=== PATIENT | female | born 1985 | race Caucasian/White ===

== ENCOUNTER 2020-04-03 15:00 | Outpatient (REF) | payer BC, SELFPAY ==
[2020-04-03 13:32] LABS: Abs Immature Grans 0.01 10^3/uL (0.0-0.06); Absolute Basophil Count 0.05 10^3/uL (0.0-0.2); Absolute Eosinophil Count 0.12 10^3/uL (0.0-0.7); Absolute Lymphocyte Count 1.32 10^3/uL (1.2-3.4); Absolute Monocyte Count 0.32 10^3/uL (0.1-0.8); Absolute Neutrophil Count 4.59 10^3/uL (1.2-6.7); Basophils % 0.8; Eosinophils % 1.9; HCT 39.2 % (36.0-46.0); HGB 12.9 g/dL (11.2-15.7); Immature Grans % 0.2; Lymphocytes % 20.6; MCH 29.1 pg (27.0-33.0); MCHC 32.9 % (32.0-36.0); MCV 88.5 fL (80-95); MPV 9.9 fL (8.0-11.0); Neutrophils % 71.5; Nucleated RBC 0 %; Platelet Count 301 10^3/uL (130-400); RBC 4.43 10^6/uL (3.93-5.22); RDW 12.3 % (11.7-14.6); RDW-SD 39.8 fL; WBC 6.41 10^3/uL (4.4-10.8)
[2020-04-03 13:44] LABS: ALT 17 U/L (14-59); AST 15 U/L (15-37); Albumin 4.6 g/dL (3.4-5.0); Alkaline Phosphatase 46 U/L (46-116); Anion Gap 8.8 mmol/L (3-11); BUN 15 mg/dL (7-18); Bilirubin, Total 0.5 mg/dL (0.2-1.0); CO2 29.2 mmol/L (21.0-32.0); CREATININE 0.86 mg/dL (0.55-1.02); Calcium 9.1 mg/dL (8.5-10.1); Calculated LDL 140 mg/dL (<100); Chloride 101 mmol/L (98-107); Cholesterol 224 mg/dL (<200); Glucose 82 mg/dL (74-106); HDL Cholesterol 77 mg/dL (40-60); Potassium 3.8 mmol/L (3.5-5.1); Sodium 139 mmol/L (136-145); TSH (W/Ref FT4) 1.54 uIU/mL (0.36-3.74); Total Protein 7.5 g/dL (6.4-8.2); Triglyceride 38 mg/dL (<150)
== END 2020-04-03 15:20 ==
LOC: NCHCN 15:00
PROVIDERS: PCP Internal Medicine; Visit Provider Nurse Practitioner Family
DX: M35.00 Sjogren syndrome, unspecified (principal); M79.629 Pain in unspecified upper arm
CPT/HCPCS: 80053; 80061; 84443; 85025

== ENCOUNTER 2021-07-17 19:35 | Outpatient (REF) | payer BC, SELFPAY ==
[2021-07-17 17:04] LABS: Source Nasal/Nares
[2021-07-17 17:58] LABS: COVID-19 PCR Negative (Negative)
== END 2021-07-17 19:36 | disposition home or self-care (01) ==
LOC: LBN 19:35
PROVIDERS: PCP Internal Medicine; Visit Provider Urology
DX: Z20.822 Contact with and (suspected) exposure to COVID-19 (principal); Z01.818 Encounter for other preprocedural examination
CPT/HCPCS: 87635

== ENCOUNTER 2021-07-21 09:05 | Day surgery (SDC) | payer BC, SELFPAY ==
[2021-07-21 09:10] VITALS: BP 121/86; PULSE 80; RESP 18; TEMP 36.2; O2SAT 100
[2021-07-21] MEDS: Lactated Ringers 1,000 ML 80 ML IV (09:39)
--- NOTE | 2021-07-21 10:14 | ANES.PREOP_ITS ---
General Info Date of Service Date Performed: 07/21/21 Height: 5 ft 10 in Weight: 84.1 kg Body Mass Index (BMI): 26.6 Surgical Procedure: Operation Date: 07/21/21 10:55 Proposed Procedure Side Surgeon p Cystoscopy/Poss. Laser/Retrograde/Ureteroscopy Right Narendra Fitzpatrick MD Meds Allergies and Home Medications Allergies Allergy/AdvReac Type Severity Reaction Status Date / Time pollen extracts Allergy Unverified 07/21/21 09:16 hydrocodone AdvReac Intermediate Nausea Unverified 07/21/21 09:16 oxycodone AdvReac Intermediate Nausea Unverified 07/21/21 09:16 Home Medication Medication Instructions Recorded bupropion HCl 300 mg 24 hr tablet, 300 mg PO DAILY 05/29/15 extended release (Wellbutrin XL) naproxen sodium 220 mg capsule 2 tab PO BID PRN #0 05/30/15 (Aleve) Tumeric 1 tab PO DAILY 11/16/17 spironolactone 50 mg tablet 200 mg PO DAILY tab 07/15/21 tamsulosin 0.4 mg capsule 0.4 mg PO DAILY 07/15/21 doxycycline hyclate 50 mg capsule 50 mg PO DAILY 07/17/21 levonorgestrel 20 mcg/24 hours (7 1 device INTRAUTERINE ONCE 07/17/21 yrs) 52 mg intrauterine device (Mirena) tolterodine 4 mg capsule,extended 4 mg PO DAILY 07/17/21 release 24 hr (Detrol LA) cetirizine 10 mg capsule (Zyrtec) 10 mg PO DAILY 07/18/21 Current Visit Medications: Current Medications Generic Name Dose Route Start Last Admin Trade Name Jasperq PRN Reason Stop Dose Admin Ringer's Solution 1,000 mls @ 80 mls/hr 07/21/21 06:00 07/21/21 09:39 IV 08/17/21 23:59 80 mls/hr INFUSION KING Administration Cefazolin Sodium/Dextrose 2 gm in 50 mls @ 100 mls/hr 07/21/21 06:00 Ancef Duplex IVPB 07/21/21 16:00 PREOP KING IV Miscellaneous Supplies 1 each 07/21/21 06:00 Iv Access IV 08/17/21 23:59 DIRECTED KING Sodium Chloride 0 ml 07/21/21 06:00 Normal Saline Flush 10 Ml Syr IV 08/17/21 23:59 PRN PRN Sodium Chloride 0 ml 07/21/21 06:00 Normal Saline 10 Ml Vial IJ 08/17/21 23:59 DIRECTED PRN Sterile Water 0 ml 07/21/21 06:00 Water,Injection,Sterile 10 Ml Vial IJ 08/17/21 23:59 DIRECTED PRN PFSH Active Problems Active Problems: Problem Status Onset Code Abscess, dental 05/29/15 K04.7 recurrent dental infections recurrent kidney infections Anxiety F41.9 Acne L70.9 Restless leg syndrome G25.81 PTSD (post-traumatic stress disorder) F43.10 Personal history of urinary calculi Z87.442 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 Personal history of urinary infection Z87.440 ADD (attention deficit disorder) F90.0 nuvaring for contraception Right distal ureteral calculus N20.1 Medical History Medical History Acne cystica ADD (attention deficit disorder) LEONARDO positive Anxiety Chronic neck pain Epigastric pain Exercise induced bronchospasm Hirsutism Kidney stones Night sweats Polycystic ovary syndrome PTSD (post-traumatic stress disorder) Restless leg syndrome Right facial pain Right hip pain Sjogrens syndrome Ulnar neuropathy Urolithiasis Surgical History Surgical History Appendectomy Hip surgery reshape femoral head History of lymph node biopsy left groin Tonsillectomy Tobacco Smoking/Tobacco Use Status: Never Alcohol Alcohol Intake: current Alcohol intake frequency: holidays/special occasions only Alcohol type: wine Substance Use Substance use: Never Vital Signs and Lab Results Vital Signs Most Recent Vital Signs in EMR: Most Recent Vital Signs Temp Pulse Resp BP Pulse Ox 36.2 C L 80 18 121/86 100 07/21/21 09:10 07/21/21 09:10 07/21/21 09:10 07/21/21 09:10 07/21/21 09:10 Point of Care Results Point of Care Results: POC- Test(urine) Negative 07/21/21 09:44 Lab Results Blood Type / Crossmatch: No Data to Display Complete Blood Count: No Data to Display Complete Metabolic Panel: No Data to Display Liver Function Panel: No Data to Display Coagulation Panel: No Data to Display Cardiac Panel: No Data to Display Arterial Blood Gas: No Data to Display Venous Blood Gas: No Data to Display Pancreas Panel: No Data to Display Thyroid Panel: No Data to Display Infectious Disease: Coronavirus (COVID-19)(PCR) Negative (Negative) 07/17/21 14:00 07/17/21 Coronavirus 2019 Source Nasal/Nares 07/17/21 14:00 07/17/21 Blood Cultures: No Data to Display Toxicology Panel: 2 No Data to Display Panel: No Data to Display Anesthesia Assessment and Plan Anesthesia History Personal History: PONV Family History: No Family History of Anesthesia Complications Exercise Tolerance Exercise Tolerance: Metabolic Equivalents>4 Pertinent Negatives Pertinent Negatives: No Symptoms of GERD Cardiac & Pulmonary Exam Cardiac Exam: Normal S1/S2 Heart Sounds Pulmonary Exam: Clear Bilateral Breath Sounds Implantable Cardiac Device Does patient have a Pacemaker or an ICD?: No Airway Exam Known Difficult Airway: No Mallampati Class: 2 Mouth Opening: Normal (> 3cm) Thyromental Distance: Greater than 3 cm Neck Range of Motion: Full ROM Neck Circumference: Normal Teeth Condition: Normal Dentition ASA Classification ASA Score: ASA 2 Emergency Case?: No NPO Status NPO Status: NPO Clears >2 hours, Solids >8 hours Status Status: Negative HCG Anesthesia Plan Resuscitation Status: Full Code Anesthesia Technique: General Anesthesia Airway Planned: Natural Airway Monitors Used: Standard Monitors
[2021-07-21 10:39] VITALS: BMI 26.6
--- NOTE | 2021-07-21 11:28 | HPE_ITS ---
Date of service: 07/21/21 Time of Service: 11:28 Assessment and Plan Assessment and plan (1) Right distal ureteral calculus: Status: Acute Assessment and plan: For cystoscopy, right retrograde pyelogram, right ureteroscopy and stone manipulation. History of Present Illness History of Present Illness Chief Complaint: Right ureteral stone Narrative: This is a 36-year-old woman who has a history of kidney stones dating back to her teenage years.? Her stones typically have been on the right side.? Her initial stones were calcium based but she has not had any stone or metabolic work-up done lately. She has been able to pass her stones with conservative treatment.? She has never required surgery. Her last stone flareup was about 5 years ago, but she then developed renal colic symptoms about 1 month ago.? She was seen in the emergency department at [facility].? A CT scan was read as having a 3 mm right distal ureteral stone.? She was started on tamsulosin and conservative management. Her pain has been manageable, but she has continued to have urinary frequency and urgency.? At 1 point, it was felt that she likely had a UTI and she was given antibiotics.? The culture ultimately showed no bacterial growth and it was felt that the frequency and urgency were due to the distal ureteral stone.? She is now having intermittent pain that shoots down to the right sided pelvic area. She had seen a urologist at [facility] and was scheduled for ureteroscopy on 08/06/2021.? She is wondering if we might be able to perform the procedure more quickly for her. She is not having any fevers or chills.? She has no adverse reaction to anesthetics.? She has no known bleeding disorders. Review of Systems Narrative: No fevers or chills No vision change or dysphasia No diabetes or thyroid No shortness of breath, cough or hemoptysis No chest pain or palpitations No nausea, vomiting, hepatitis, ulcers, jaundice, diarrhea or constipation No seizures, strokes or peripheral neuropathy No bleeding disorders or anemia No gout or arthralgia PFSH All Active Problems Abscess, dental (Acute 05/29/15) right lower jaw, tooth #30 recurrent dental infections (Chronic) recurrent kidney infections (Chronic) Anxiety (Chronic) Acne (Chronic) Restless leg syndrome (Chronic) PTSD (post-traumatic stress disorder) (Chronic) Personal history of urinary calculi (Chronic) Exercise induced bronchospasm (Chronic) Personal history of urinary infection (Chronic) ADD (attention deficit disorder) (Chronic) nuvaring for contraception (Chronic) Right distal ureteral calculus (Acute) Medical History Acne cystica ADD (attention deficit disorder) LEONARDO positive Anxiety Chronic neck pain Epigastric pain Exercise induced bronchospasm Hirsutism Kidney stones Night sweats Polycystic ovary syndrome PTSD (post-traumatic stress disorder) Restless leg syndrome Right facial pain Right hip pain Sjogrens syndrome Ulnar neuropathy Urolithiasis Surgical History Appendectomy Hip surgery reshape femoral head History of lymph node biopsy left groin Tonsillectomy Social History Smoking/Tobacco Use Status: Never Smoking risk assessment performed?: Yes Alcohol Intake: current Alcohol Intake frequency: holidays/special occasions only Alcohol type: wine Drug use: Never Do you feel safe at home: Yes Do you feel safe in your relationship?: Yes Meds Allergies and Home Medications Allergies Allergy/AdvReac Type Severity Reaction Status Date / Time pollen extracts Allergy Unverified 07/21/21 09:16 hydrocodone AdvReac Intermediate Nausea Unverified 07/21/21 09:16 oxycodone AdvReac Intermediate Nausea Unverified 07/21/21 09:16 Home Medications Medication Instructions Recorded Confirmed Type bupropion HCl 300 mg 24 hr tablet, 300 mg PO DAILY 05/29/15 07/21/21 History extended release (Wellbutrin XL) naproxen sodium 220 mg capsule 2 tab PO BID PRN #0 05/30/15 07/21/21 Rx (Aleve) Tumeric 1 tab PO DAILY 11/16/17 07/18/21 History spironolactone 50 mg tablet 200 mg PO DAILY tab 07/15/21 07/21/21 History tamsulosin 0.4 mg capsule 0.4 mg PO DAILY 07/15/21 07/21/21 History doxycycline hyclate 50 mg capsule 50 mg PO DAILY 07/17/21 07/21/21 History levonorgestrel 20 mcg/24 hours (7 1 device INTRAUTERINE ONCE 07/17/21 07/18/21 History yrs) 52 mg intrauterine device (Mirena) tolterodine 4 mg capsule,extended 4 mg PO DAILY 07/17/21 07/18/21 History release 24 hr (Detrol LA) cetirizine 10 mg capsule (Zyrtec) 10 mg PO DAILY 07/18/21 07/21/21 History Exam Const General: cooperative and comfortable Neck Neck: supple Resp Effort & Inspection: normal respiratory effort Auscultation: clear to auscultation bilaterally Cardio Rate: regular rate Rhythm: regular rhythm GI Palpation: no masses Neuro General: patient alert, patient awake and patient oriented x3 Results Last Vital Signs Temp 36.2 C L 07/21/21 09:10 Pulse 80 07/21/21 09:10 Resp 18 07/21/21 09:10 BP 121/86 07/21/21 09:10 Pulse Ox 100 07/21/21 09:10
[2021-07-21] MEDS: ceFAZolin 2 GM/50 ML BAG IVPB (12:24)
[2021-07-21] MEDS: Omnipaque 300 MG/ML 50 ML BTL (12:34)
[2021-07-21] MEDS: Lidocaine 2% Jelly 6 ML SYR (12:34)
--- NOTE | 2021-07-21 12:45 | DI.RAD_ITS ---
Exam(s) XR RETROGRADE IN OR EXAM: XR RETROGRADE IN OR CLINICAL HISTORY: Right distal ureteral calculus TECHNIQUE: 2D and realtime digital imaging was performed. CONTRAST MATERIAL: Refer to procedure report. COMPARISON: No exams were available for comparison FINDINGS: Fluoroscopy was provided for Dr. Fitzpatrick during the performance of a retrograde evaluation of the apoorva l collecting system. Please refer to the procedure report for complete details. Ka,r=0.80 mGy IMPRESSION: RADIATION DOSE DELIVERED:
--- NOTE | 2021-07-21 12:47 | W.PM.DSUDISC ---
Discharge Plan Disposition Patient Disposition: HOME Condition: Stable Discharge Details Reason For Visit: ureteroscopy Attending Provider: Narendra Fitzpatrick Primary Care Provider: Dhruv Leung Home Meds and New Rx's Prescriptions: No Action doxycycline hyclate 50 mg capsule 50 mg PO DAILY 0RF Mirena 20 mcg/24 hours (7 yrs) 52 mg intrauterine device 1 device intrauterine ONCE 0RF Rx Instructions: as a single dose spironolactone 50 mg tablet 200 mg PO DAILY 0RF tamsulosin 0.4 mg capsule 0.4 mg PO DAILY 0RF tolterodine [Detrol LA] 4 mg capsule,extended release 24hr 4 mg PO DAILY 0RF Label Comments: has not started yet, wants to confirm needed TT 07/17/21 bupropion HCl [Wellbutrin XL] 300 MG tablet extended release 24 hr 300 mg PO DAILY 0RF naproxen sodium [Aleve] 220 MG capsule 2 tab PO BID PRNQty: 0 0RF Tumeric 1 tab PO DAILY 0RF Zyrtec 10 mg Capsule 10 mg PO DAILY 0RF Discharge Instructions Additional Instructions: resume all home meds except tamsulosin and tolterodine no need to strain urine Followup 6 to 8 weeks with renal US Activity:: Activity as Tolerated Remove Dressings/Wound Care:: 24 hours Shower/Bathe:: 24 hours Diet:: As Tolerated Discharge Orders Discharge Orders: Discharge Order (Routine); Ordered 07/21/21 Ordered By: Narendra Fitzpatrick DS: Diagnosis Discharge Diagnosis (1) Right distal ureteral calculus: Status: Acute
--- NOTE | 2021-07-21 12:53 | ROE_ITS ---
Date of service: 07/21/21 Time of Service: 12:53 Operative Note Operative Note DATE OF PROCEDURE: 07/21/21 PRE-OP DIAGNOSIS: Right ureteral stone POST-OP DIAGNOSIS: same PROCEDURE: Cystoscopy, right retrograde pyelogram, right ureteroscopy with stone extraction SURGEON: Narendra Fitzpatrick ANESTHESIA TYPE: General:No Airway Refer to Anesthesia Record ESTIMATED BLOOD LOSS: 0 PATHOLOGY: other (stone for chemical analysis) COMPLICATIONS: None Patient was transported to: PACU Patient's condition: stable Implants: none Indications: This is a 36-year-old woman who was identified as having a 3 mm stone in the right distal ureter. It is expected that the stone would pass with conservative management, but in spite of alpha blockers and hydration, her stone has not passed. She continues to have urinary frequency and urgency. He is not having much in terms of flank pain. She presents now for stone manipulation Findings: Edematous right ureteral orifice Stone in right distal ureter Procedure Description: Patient was brought to the operating room on 07/21/2021. She was given a dose of preoperative IV antibiotics. After successful induction of general anesthesia without intubation, she was placed in the dorsal lithotomy position. Her genitalia was prepped and draped. 2% Xylocaine jelly was instilled into the urethra to act as a local anesthetic. A 22 Australian rigid cystoscope was passed through the urethra into the bladder. Urethra and bladder were inspected with a 30 degree lens. The left ureteral orifice appeared normal with no erythema and no blood coming from that side. The right ureteral orifice appeared edematous. I did not see any urine or blood coming from the right orifice. I then passed the 5 Australian access catheter through the cystoscope and maneuvered the end of the catheter into the right ureteral orifice. I injected Omnipaque through the access catheter and a small filling defect was outlined the area of the distal ureter. I then passed a guidewire through the access catheter and removed the catheter leaving the wire in place. I then removed the cystoscope. I passed the semirigid ureteroscope through the urethra into the bladder. I was able to maneuver the scope into the right ureteral orifice and a small stone was visualized. The stone was grasped in a Yanelis stone basket and removed in its entirety. The stone was then sent to pathology for chemical analysis. Because of the lack of trauma to the ureter, we elected not to place a ureteral stent. All scopes and wires were then removed. The patient tolerated the procedure with no complications. She was taken to the recovery room in stable condition.
[2021-07-21 12:54] VITALS: BP 88/56; PULSE 66; RESP 15; TEMP 36.6; O2SAT 100
[2021-07-21 12:59] VITALS: BP 88/46; PULSE 68; RESP 16; TEMP 36.6; O2SAT 100
[2021-07-21 13:04] VITALS: BP 79/55; PULSE 66; RESP 14; TEMP 36.6; O2SAT 100
[2021-07-21 13:19] VITALS: BP 112/71; PULSE 68; RESP 16; TEMP 36.6; O2SAT 100
--- NOTE | 2021-07-21 13:35 | W.ANESPOSTOP ---
Postoperative Evaluation Date, Time and Location Date Performed: 07/21/21 Time Performed: 13:35 Patient Location: Day Surgery Unit Vital Signs Most Recent Imported Vital Signs: Most Recent Vital Signs Temp Pulse Resp BP Pulse Ox 36.6 C 68 16 112/71 100 07/21/21 13:19 07/21/21 13:19 07/21/21 13:19 07/21/21 13:19 07/21/21 13:19 Pain Score Most Recent Pain Score: Most Recent Pain Score Pain Level 1 07/21/21 13:19 Assessment Mental Status: Awake (Alert & Oriented to Patient Baseline) Airway and Respiratory Function: Patent airway with normal (patient baseline) respiratory exam Cardiovascular Function: Hemodynamically Stable Hydration Status: Adequately Hydrated Nausea & Vomiting: No Nausea or Vomiting Pain: Pain is tolerable per patient Peripheral Nerve Block: Patient did not receive a nerve block
[2021-07-21 13:39] VITALS: BP 104/77; PULSE 77; RESP 18; TEMP 36.6; O2SAT 100
[2021-07-21] MEDS: Phenazopyridine 200 MG TAB PO (13:45)
[2021-07-24 15:43] LABS: Source: Right Ureter
== END 2021-07-21 14:15 | disposition home or self-care (01) ==
PROVIDERS: PCP Internal Medicine; Visit Provider Urology
PROC: (CPT 52352; principal; 2021-07-21 10:45)
DX: N20.1 Calculus of ureter (principal); E28.2 Polycystic ovarian syndrome; F41.9 Anxiety disorder, unspecified
CPT/HCPCS: 52352; 81025; 74420; 82365; J0690; J1100; J1885; J2001; J2250; J2405; J2704; Q9967

== ENCOUNTER → 2021-09-01 01:02 | Outpatient (CLI) | payer BC, SELFPAY | PROVIDERS: PCP Internal Medicine; Visit Provider Urology ==

== ENCOUNTER 2024-05-18 12:32 | Outpatient (REF) | payer BC, SELFPAY ==
[2024-05-18 16:58] LABS: BUN 10 mg/dL (7-18); CREATININE 0.8 mg/dL (0.55-1.02); Calcium 9.7 mg/dL (8.5-10.1); Chloride 103 mmol/L (98-107); Estimated GFR 96.66 (mL/min/1.73m2); Glucose 84 mg/dL (74-106); Potassium 4.3 mmol/L (3.5-5.1); Sodium 142 mmol/L (136-145); TSH (W/Ref FT4) 1.51 uIU/mL (0.36-3.74); Vitamin D 25 Total 39.6 ng/mL (30-100)
[2024-05-18 22:45] LABS: Prolactin 10.9 ng/mL (See Note)
[2024-05-18 22:48] LABS: Parathyroid Hormone,Intact 25.8 pg/mL (19.0-88.0)
[2024-05-21 13:31] LABS: Calcium, Random Ur 25 mg/dL; Creatinine, Random Ur 235 mg/dL (16 - 326)
== END 2024-05-18 12:33 | disposition home or self-care (01) ==
LOC: NCHCN 12:32
PROVIDERS: PCP Internal Medicine; Visit Provider Family Medicine
DX: E22.1 Hyperprolactinemia (principal); Z87.442 Personal history of urinary calculi
CPT/HCPCS: 80048; 82306; 82310; 83970; 84146; 84443

== ENCOUNTER 2024-11-14 16:25 | Outpatient (REF) | payer BC, SELFPAY ==
[2024-11-14 16:52] LABS: Abs Immature Grans 0.01 10^3/uL (0.0-0.06); HCT 38.8 % (36.0-46.0); HGB 12.9 g/dL (11.2-15.7); Immature Grans % 0.2 %; MCH 29.9 pg (27.0-33.0); MCHC 33.2 % (32.0-36.0); MCV 90 fL (80-95); MPV 10.2 fL (8.0-11.0); Platelet Count 326 10^3/uL (130-400); RBC 4.32 10^6/uL (3.93-5.22); RDW 12.0 % (11.7-14.6); RDW-SD 39.6 fL; WBC 5.76 10^3/uL (4.4-10.8)
[2024-11-14 17:08] LABS: Iron 92 ug/dL (50-170); Total Iron Binding Capacity 350 ug/dL (250-450); Transferrin Sat 26 % (15-50)
[2024-11-14 17:18] LABS: Ferritin 56 ng/mL (8-252)
== END 2024-11-14 16:26 | disposition home or self-care (01) ==
LOC: NCHCN 16:25
PROVIDERS: PCP Family Medicine; Visit Provider Family Medicine
DX: N92.0 Excessive and frequent menstruation with regular cycle (principal)
CPT/HCPCS: 82728; 83540; 83550; 85025

== ENCOUNTER 2025-02-13 14:17 | Outpatient (REF) | payer BC, SELFPAY ==
[2025-02-14 10:15] LABS: Calcium (Random Urine) 14.1 mg/dL (See Note)
== END 2025-02-13 14:18 | disposition home or self-care (01) ==
LOC: NCHCN 14:17
PROVIDERS: PCP Family Medicine; Visit Provider Family Medicine
DX: N12 Tubulo-interstitial nephritis, not specified as acute or chronic (principal)
CPT/HCPCS: 82340